=== PATIENT | female | born 1995 | race Caucasian/White ===

== ENCOUNTER → 2020-04-12 | Outpatient (CLI) | payer BC, OTHER | END | disposition home or self-care (01) | LOC: LABWHC1 10:56 | PROVIDERS: ATTEND Internal Medicine | DX: U07.1 COVID-19 (principal) | CPT/HCPCS: U0003; C9803 ==

== ENCOUNTER → 2020-05-17 | Outpatient (CLI) | payer BC ==
--- NOTE | 2020-05-17 15:31 | US ---
EXAMINATION TYPE: Transabdominal DATE OF EXAM: 05/17/2020 3:10 PM COMPARISON: NONE CLINICAL HISTORY: Z36 CONFIRM DATES. Confirm dates. Report that printed the AUA was not correct for some reason I put correct information in allan. EXAM PERFORMED: Transabdominal (TA) EXAM MEASUREMENTS: GESTATIONAL AGE / DATING Physician Established: Not yet established Dates by LMP: (11 weeks/1 days) EDC: 12/05/2020 Dates by First Scan: No previous this is first scan ( weeks/ days) EDC: Dates by Current Scan for: (11 weeks/4 days) EDC: 12/02/2020 MATERNAL ANATOMY Uterus: 10.3 x 6.7 x 7.0 cm Right Ovary: Obscured by bowel gas. Left Ovary: Obscured by bowel gas. Post CDS / Adnexa: wnl Presence of free fluid: no Presence of corpus luteal cyst: no Presence of subchorionic bleed: no GESTATION / SURVEY CRL: .46 cm (11 weeks/4 days) Yolk Sac (normal less than 6mm): 4 mm Heart Rate: 161 bpm Rhythm: Normal IUP: Viable IUP Beta HcG (if available): Not available at this time IMPRESSION: Viable 11 weeks 4 days with a heart rate of 161 bpm.
== END | disposition home or self-care (01) ==
LOC: RADUSWWP 14:49
PROVIDERS: ATTEND Obstetrics & Gynecology
DX: Z36.87 Encounter for antenatal screening for uncertain dates (principal); Z3A.11 11 weeks gestation of pregnancy
CPT/HCPCS: 76801

== ENCOUNTER → 2020-07-31 | Outpatient (CLI) | payer BC | END | disposition home or self-care (01) | LOC: LABWHC1 14:22 | PROVIDERS: ATTEND Internal Medicine | DX: R05 Cough (principal); Z20.828 Contact with and (suspected) exposure to other viral communicable diseases | CPT/HCPCS: U0003; C9803 ==

== ENCOUNTER 2020-08-05 16:34 | Emergency (ER) | payer BC ==
[2020-08-05 16:58] VITALS: RESP 18
--- NOTE | 2020-08-05 18:09 | ED ---
General Adult HPI - General Chief complaint: Upper Respiratory Infection Stated complaint: SOB/cough COVID+ Time Seen by Provider: 08/05/20 17:57 Source: patient, RN notes reviewed Mode of arrival: ambulatory Limitations: no limitations - History of Present Illness Initial comments: this a 25-year-old female presents emergency department with chief complaint of shortness breath, positive Covid. Patient states she started having symptoms 10 days ago. Patient states that she's noticed some shortness of breath. Patient states she followed up today she was positive. Patient denies any nausea vomiting diarrhea constipation. Patient is 22 weeks . Patient states her [employer]CH[employer]ICIAN is Dr. Bettencourt she is A0 currently of medications with the pre gnancy. Patient has no significant lung disease. - Related Data Previous Rx's Medication Instructions Recorded Albuterol Sulfate [Proair Hfa] 1 - 2 puff INHALATION Q4HR PRN #1 08/05/20 inhaler Allergies Allergy/AdvReac Type Severity Reaction Status Date / Time No Known Allergies Allergy Verified 08/05/20 16:58 Review of Systems ROS Statement: Those systems with pertinent positive or pertinent negative responses have been documented in the HPI. ROS Other: All systems not noted in ROS Statement are negative. Past Medical History Past Medical History: No Reported History History of Any Multi-Drug Resistant Organisms: None Reported Past Surgical History: No Surgical Hx Reported Past Psychological History: No Psychological Hx Reported Smoking Status: Never smoker Past Alcohol Use History: None Reported Past Drug Use History: None Reported General Exam Limitations: no limitations General appearance: alert, in no apparent distress Head exam: Present: atraumatic, normocephalic, normal inspection Eye exam: Present: normal appearance, PERRL, EOMI. Absent: scleral icterus, conjunctival injection, periorbital swelling ENT exam: Present: normal exam, normal oropharynx, mucous membranes moist Neck exam: Present: normal inspection, full ROM. Absent: tenderness, meningismus, lymphadenopathy Respiratory exam: Present: normal lung sounds bilaterally. Absent: respiratory distress, wheezes, rales, rhonchi, stridor Cardiovascular Exam: Present: regular rate, normal rhythm, normal heart sounds. Absent: systolic murmur, diastolic murmur, rubs, gallop, clicks GI/Abdominal exam: Present: soft, normal bowel sounds. Absent: distended, tenderness, guarding, rebound, rigid Course Vital Signs 08/05/20 16:56 Temperature 98.0 F Pulse Rate 109 H Respiratory 18 Rate Blood Pressure 149/75 O2 Sat by Pulse 97 Oximetry Medical Decision Making - Medical Decision Making chest x-rays unremarkable. Respiratory rate within normal limits and no signs of distress. Patient is covid positive though very mild symptomspatient we discharged in stable condition return parameters discussed. Disposition Clinical Impression: COVID-19 Disposition: HOME SELF-CARE Condition: Stable Instructions (If sedation given, give patient instructions): Upper Respiratory Infection (ED) Additional Instructions: Please return to the Emergency Department if symptoms worsen or any other concerns. Prescriptions: Albuterol Sulfate [Proair Hfa] 1 - 2 puff INHALATION Q4HR PRN #1 inhaler PRN Reason: difficulty in breathing Is patient prescribed a controlled substance at d/c from ED?: No Referrals: Lesia Perdue MD [Primary Care Provider] - 1-2 days Time of Disposition: 18:36
--- NOTE | 2020-08-05 18:41 | XR ---
EXAMINATION TYPE: XR chest 2V DATE OF EXAM: 08/05/2020 COMPARISON: NONE HISTORY: Cough TECHNIQUE: FINDINGS: Heart and mediastinum are normal. Lungs are clear. Diaphragm is normal. Bony thorax appears normal. Pulmonary vascularity is normal. IMPRESSION: Normal chest.
[2020-08-05 19:09] VITALS: BP 109/61; PULSE 89; TEMP 98.6
== END 2020-08-05 19:08 | disposition home or self-care (01) ==
LOC: EC 16:34
DX: O98.511 Other viral diseases complicating pregnancy, first trimester (principal); U07.1 COVID-19; Z3A.22 22 weeks gestation of pregnancy
CPT/HCPCS: 71046; 99284

== ENCOUNTER 2020-10-15 16:40 | Outpatient (CLI) | payer BC ==
[2020-10-15 17:14] VITALS: RESP 16; TEMP 96.5
[2020-10-15 17:15] LABS: Appearance,Urine Cloudy (Clear); Bacteria,Urine Occasional /hpf; Bilirubin,Urine Negative (Negative); Blood,Urine Negative (Negative); Color,Urine Light Yellow; Glucose,Urine (UA) Negative (Negative); Ketones,Urine Negative (Negative); Leukocyte Esterase,Urine Negative (Negative); Nitrite,Urine Negative (Negative); Protein,Urine Negative (Negative); RBC,Urine <1 /hpf (0-5); Specific Gravity,Urine 1.006 (1.001-1.035); Squamous Epithelial Cell,Urine 6 /hpf (0-4); Urobilinogen,Urine <2.0 mg/dL (<2.0); WBC,Urine 1 /hpf (0-5)
[2020-10-15 17:24] LABS: Protein/Creatinine Ratio,Urine 0.667
[2020-10-15 18:19] LABS: Basophils # (A) 0.1 k/uL (0-0.2); Basophils % (A) 1 %; Eosinophils # (A) 0.1 k/uL (0-0.7); Eosinophils % (A) 1 %; HCT 38.7 % (34.0-46.0); HGB 13.2 gm/dL (11.4-16.0); Lymphocytes # (A) 2.1 k/uL (1.0-4.8); Lymphocytes % (A) 19 %; MCH 29.8 pg (25.0-35.0); MCHC 34.2 g/dL (31.0-37.0); MCV 87.1 fL (80.0-100.0); Mean Platelet Volume 8.6; Monocytes # (A) 0.7 k/uL (0-1.0); Monocytes % (A) 6 %; Neutrophils # (A) 8.1 k/uL (1.3-7.7); Neutrophils % (A) 73 %; Platelet Count 238 k/uL (150-450); RBC 4.44 m/uL (3.80-5.40); RDW 12.9 % (11.5-15.5); WBC 11.2 k/uL (3.8-10.6)
[2020-10-15 18:27] LABS: ALT 680 U/L (4-34); AST 296 U/L (14-36); African American GFR (CKD) >90 (>60 ml/min/1.73 sqM); Blood Urea Nitrogen 8 mg/dL (7-17); LDH 556 U/L (313-618); Non-African American GFR(CKD) >90 (>60 ml/min/1.73 sqM); Uric Acid 3.8 mg/dL (3.7-7.4)
[2020-10-15 18:32] LABS: INR 0.8 (<1.2); Partial Thromboplastin Time 22.8 sec (22.0-30.0); Prothrombin Time 9.3 sec (9.0-12.0)
[2020-10-15] MEDS ORDERED: BETAMET ACET-BETAMETH SOD PHOS 6 MG/ML MDV IM SCH (18:45)
[2020-10-15] MEDS ORDERED: CALCIUM GLUCONATE 1 GM/10 ML VIAL IV PRN (19:04)
[2020-10-15] MEDS ORDERED: MAGNESIUM SULFATE-WATER PMX 4 GM in WATER FOR INJECTION 1 100ML.BAG IVPB ONE (19:04)
[2020-10-15] MEDS ORDERED: MAGNESIUM SULFATE-WATER PMX 20 GM in WATER FOR INJECTION 1 500ML.BAG IV SCH (19:15)
[2020-10-15] MEDS ORDERED: LACTATED RINGERS 1,000 ML IV SCH (19:15)
--- NOTE | 2020-10-15 19:32 | P.HPOB ---
History of Present Illness H&P Date: 10/15/20 Chief Complaint: Preeclampsia 25-year-old presents at 32 weeks and 5 days with elevated blood pressure in my office. The blood pressure was 150/101 149/104. She denies headache, did have a little bit of blurry vision yesterday, no nausea or RUQ pain. I consulted with the MFM at [facility], Dr Shipley. Pt was diagnosed with preeclampsia. I will give her betamethasone and put her on magnesium sulfate to transfer her to [facility] where there is a NICU that can care for the baby at this gestation. Patient is not roz and the f etal heart tones are 135 with category 1 tracing. Review of Systems All systems: negative Constitutional: Denies chills, Denies fever Eyes: denies blurred vision, denies pain Ears, nose, mouth and throat: Denies headache, Denies sore throat Cardiovascular: Denies chest pain, Denies shortness of breath Respiratory: Denies cough Gastrointestinal: Denies abdominal pain, Denies diarrhea, Denies nausea, Denies vomiting Genitourinary: Denies dysuria, Denies hematuria Musculoskeletal: Denies myalgias Integumentary: Denies pruritus, Denies rash Neurological: Denies numbness, Denies weakness Psychiatric: Denies anxiety, Denies depression Endocrine: Denies fatigue, Denies weight change Past Medical History Additional Past Medical History / Comment(s): ADHD and endometriosis. Obstetric history: This is her first . Her blood type is O+, antibodies negative, rubella nonimmune, hepatitis B negative. Her creatinine at the beginning the was 0.57. She had an abnormal 1 hour but a normal three-hour glucose tolerance test. She did test positive for Covid- 19 in early the part of July. She quarantined for the appropriate time and recovered. History of Any Multi-Drug Resistant Organisms: None Reported Additional Past Surgical History / Comment(s): Laparoscopy Smoking Status: Never smoker Medications and Allergies Home Medications Medication Instructions Recorded Confirmed Type Albuterol Sulfate [Proair Hfa] 1 - 2 puff INHALATION Q4HR PRN #1 08/05/20 Rx inhaler Allergies Allergy/AdvReac Type Severity Reaction Status Date / Time No Known Allergies Allergy Verified 10/15/20 16:45 Exam Osteopathic Statement: *. No significant issues noted on an osteopathic structural exam other than those noted in the History and Physical/Consult. Vital Signs Temp Pulse Resp BP Pulse Ox 10/15/20 17:11 96.5 F L 113 H 16 132/81 98 Intake and Output 10/15/20 10/15/20 10/15/20 06:59 14:59 22:59 Other: Weight 91.626 kg Heart: Regular rate and rhythm Lungs: Clear to auscultation bilaterally Abdomen: Soft, nontender Extremities: Negative Homans sign, 3 / 4 DTR Results Result Diagrams: 10/15/20 17:22 10/15/20 17:22 Abnormal Lab Results - Last 24 Hours (Table) 10/15/20 10/15/20 10/15/20 Range/Units 16:35 17:22 17:22 WBC 11.2 H (3.8-10.6) k/uL Neutrophils # 8.1 H (1.3-7.7) k/uL Fibrinogen 654 H (200-500) mg/dL Creatinine (0.52-1.04) mg/dL AST (14-36) U/L ALT (4-34) U/L Urine Appearance Cloudy H (Clear) Ur Squamous Epith Cells 6 H (0-4) /hpf Urine Bacteria Occasional H (None) /hpf 10/15/20 Range/Units 17:22 WBC (3.8-10.6) k/uL Neutrophils # (1.3-7.7) k/uL Fibrinogen (200-500) mg/dL Creatinine 0.48 L (0.52-1.04) mg/dL AST 296 H (14-36) U/L ALT 680 H (4-34) U/L Urine Appearance (Clear) Ur Squamous Epith Cells (0-4) /hpf Urine Bacteria (None) /hpf Assessment and Plan (1) Preeclampsia Current Visit: Yes Status: Acute Code(s): O14.90 - UNSPECIFIED PRE- ECLAMPSIA, UNSPECIFIED TRIMESTER SNOMED Code(s): 838411813 (2) 32 weeks gestation of Current Visit: Yes Status: Acute Code(s): Z3A.32 - 32 WEEKS GESTATION OF SNOMED Code(s): 7989427 Plan: 1. Magnesium sulfate 4 g bolus and then 2 g an hour. 2. Betamethasone 3. Transfer to [facility] via EMS.
[2020-10-15 22:11] VITALS: BP 117/66; PULSE 118
== END 2020-10-15 20:05 | disposition other institution (70) ==
LOC: FBPOP 16:40
PROVIDERS: ATTEND Obstetrics & Gynecology
DX: O13.9 Gestational [pregnancy-induced] hypertension without significant proteinuria, unspecified trimester (principal); O14.90 Unspecified pre-eclampsia, unspecified trimester; Z3A.32 32 weeks gestation of pregnancy
CPT/HCPCS: 59025; 99215; 96361; 96365; 96372; 82239; 82570; 84156; 82565; 83615; 83735; 84450; 84460; 84520; 84550; 85025; 85384; 85610; 85730; 81001; 87086; J3475 ×2; J0702

== ENCOUNTER → 2021-09-03 | Outpatient (CLI) | payer OTHER | END | disposition home or self-care (01) | LOC: LABWHC1 12:10 | PROVIDERS: ATTEND Internal Medicine | DX: Z20.822 Contact with and (suspected) exposure to COVID-19 (principal) | CPT/HCPCS: U0003; C9803 ==

== ENCOUNTER 2022-01-19 09:00 | Inpatient (IN) | payer OTHER ==
[2022-01-19] MEDS ORDERED: CARBOPROST TROMETHAMINE 250 MCG/ML 1 ML AMP IM PRN (13:31)
[2022-01-19] MEDS ORDERED: TERBUTALINE 1 MG/ML VIAL SQ PRN (13:31)
[2022-01-19] MEDS ORDERED: LIDOCAINE 1% (PF) 10 MG/ML (30 ML SDV) SQ PRN (13:31)
[2022-01-19] MEDS ORDERED: OXYTOCIN 10 UNIT/ML 1 ML VIAL IM PRN (13:31)
[2022-01-19] MEDS ORDERED: METHYLERGONOVINE 0.2 MG/ML 1 ML AMP IM PRN (13:31)
[2022-01-19] MEDS ORDERED: LACTATED RINGERS 1,000 ML IV SCH (13:45)
[2022-01-19] MEDS ORDERED: ROPIVACAINE 100 MG, fentaNYL (PF). 200 MCG in SODIUM CHLORIDE 0.9% 76 ML EPIDURAL ONE (13:46)
[2022-01-19 14:32] LABS: Basophils # (A) 0.1 k/uL (0-0.2); Basophils % (A) 1 %; Eosinophils # (A) 0.3 k/uL (0-0.7); Eosinophils % (A) 2 %; HCT 40.3 % (34.0-46.0); HGB 13.4 gm/dL (11.4-16.0); Lymphocytes % (A) 18 %; MCHC 33.2 g/dL (31.0-37.0); MCV 87.4 fL (80.0-100.0); Mean Platelet Volume 9.1; Monocytes # (A) 0.5 k/uL (0-1.0); Monocytes % (A) 4 %; Neutrophils # (A) 7.9 k/uL (1.3-7.7); Neutrophils % (A) 73 %; Platelet Count 245 k/uL (150-450); RBC 4.61 m/uL (3.80-5.40); RDW 12.9 % (11.5-15.5)
[2022-01-19] MEDS ORDERED: SIMETHICONE 80 MG CHEWABLE PO PRN (16:25)
[2022-01-19] MEDS ORDERED: diphenhydrAMINE 25 MG CAP PO PRN (16:25)
[2022-01-19] MEDS ORDERED: diphenhydrAMINE 50 MG/ML 1 ML VIAL IVP PRN ×2 (16:25)
[2022-01-19] MEDS ORDERED: LANOLIN CREAM 5 GM TUBE TOPICAL PRN (16:25)
[2022-01-19] MEDS ORDERED: ZOLPIDEM 5 MG TAB PO PRN (16:25)
[2022-01-19] MEDS ORDERED: ACETAMINOPHEN TAB 325 MG TAB PO PRN (16:25)
[2022-01-19] MEDS ORDERED: HYDROCORTISONE 2.5% RECTAL CREAM 30 GM TUBE RECTAL PRN (16:25)
[2022-01-19] MEDS ORDERED: BENZOCAINE/MENTHOL SPRAY 1 GM/SPRAY AEROSOL TOPICAL PRN (16:25)
[2022-01-19] MEDS ORDERED: diphenhydrAMINE 50 MG CAP PO PRN (16:25)
[2022-01-19] MEDS: IBUPROFEN 600 MG TAB PO PRN (16:53)
[2022-01-19] MEDS: SENNOSIDES-DOCUSATE SODIUM 1 EACH TAB PO SCH (20:16)
[2022-01-20] MEDS: IBUPROFEN 600 MG TAB PO PRN ×2 (05:28→13:00)
[2022-01-20 07:05] LABS: Basophils # (A) 0.1 k/uL (0-0.2); Basophils % (A) 1 %; Eosinophils # (A) 0.4 k/uL (0-0.7); Eosinophils % (A) 3 %; HCT 37.4 % (34.0-46.0); HGB 12.3 gm/dL (11.4-16.0); Lymphocytes # (A) 2.6 k/uL (1.0-4.8); Lymphocytes % (A) 19 %; MCH 29.2 pg (25.0-35.0); MCHC 32.9 g/dL (31.0-37.0); MCV 88.7 fL (80.0-100.0); Mean Platelet Volume 9.4; Monocytes # (A) 0.7 k/uL (0-1.0); Monocytes % (A) 5 %; Neutrophils # (A) 9.3 k/uL (1.3-7.7); Neutrophils % (A) 70 %; Platelet Count 202 k/uL (150-450); RBC 4.22 m/uL (3.80-5.40); RDW 12.9 % (11.5-15.5); WBC 13.2 k/uL (3.8-10.6)
--- NOTE | 2022-01-20 07:33 | P.HPOB ---
History of Present Illness H&P Date: 01/19/22 Chief Complaint: cholestasis of 26 her old presents at 37 weeks and 6 days for induction of labor due to cholestasis of . She started having itching last week and had liver enzymes and by last was tested. All levels were elevated. Her cervix is 4cm dilated, 80% effaced, -2 station. She is roz every 2-5 minutes. heart tones 135 with moderate variability and reactive. Review of Systems All systems: negative Constitutional: Denies chills, Denies fever Eyes: denies blurred vision, denies pain Ears, nose, mouth and throat: Denies headache, Denies sore throat Cardiovascular: Denies chest pain, Denies shortness of breath Respiratory: Denies cough Gastrointestinal: Denies abdominal pain, Denies diarrhea, Denies nausea, Denies vomiting Genitourinary: Denies dysuria, Denies hematuria Musculoskeletal: Denies myalgias Integumentary: Denies pruritus, Denies rash Neurological: Denies numbness, Denies weakness Psychiatric: Denies anxiety, Denies depression Endocrine: Denies fatigue, Denies weight change Past Medical History Past Medical History: No Reported History Additional Past Medical History / Comment(s): ADHD and endometriosis. Obstetric history: First she was delivered at 33 weeks for preeclampsia. This is her second . Her blood type is O+, antibodies negative, rubella immune, hepatitis B negative. Currently has cholestasis of History of Any Multi-Drug Resistant Organisms: None Reported Past Surgical History: No Surgical Hx Reported Additional Past Surgical History / Comment(s): Laparoscopy Smoking Status: Never smoker Medications and Allergies Home Medications Medication Instructions Recorded Confirmed Type Aspirin [Children's Aspirin] 81 mg PO DAILY 01/19/22 01/19/22 History 78/Iron/Folate 1/Dha 1 each PO DAILY 01/19/22 01/19/22 History [Prenate Dha Softgel] Allergies Allergy/AdvReac Type Severity Reaction Status Date / Time No Known Allergies Allergy Verified 01/19/22 13:39 Exam Osteopathic Statement: *. No significant issues noted on an osteopathic structural exam other than those noted in the History and Physical/Consult. Vital Signs Temp Pulse Resp BP Pulse Ox 01/20/22 04:00 98.0 F 97 16 123/77 97 01/20/22 00:00 97.7 F 89 16 125/75 96 01/19/22 20:00 98.0 F 89 17 125/78 96 01/19/22 18:00 96.7 F L 92 16 129/82 01/19/22 17:30 90 16 116/74 01/19/22 17:00 86 16 117/81 01/19/22 16:45 84 16 116/76 01/19/22 16:30 85 16 126/76 01/19/22 16:15 83 16 128/75 01/19/22 16:00 98.2 F 87 16 130/79 Intake and Output 01/19/22 01/20/22 01/20/22 22:59 06:59 14:59 Output Total 175 Balance -175 Output: Output, Quantitative 175 Blood Loss Other: # Voids 1 2 Heart: Regular rate and rhythm Lungs: Clear to auscultation bilaterally Abdomen: Soft, nontender Extremities: Negative Homans sign Results Result Diagrams: 01/20/22 06:40 Abnormal Lab Results - Last 24 Hours (Table) 01/19/22 01/20/22 Range/Units 11:00 06:40 WBC 11.0 H 13.2 H (3.8-10.6) k/uL Neutrophils # 7.9 H 9.3 H (1.3-7.7) k/uL Assessment and Plan (1) Cholestasis during Current Visit: Yes Status: Acute Code(s): O26.619 - LIVER AND BILIARY TRACT DISORD IN , UNSP TRIMESTER; K83.1 - OBSTRUCTION OF BILE DUCT SNOMED Code(s): 103705963 (2) 37 weeks gestation of Current Visit: Yes Status: Acute Code(s): Z3A.37 - 37 WEEKS GESTATION OF SNOMED Code(s): 84604125 (3) Encounter for induction of labor Current Visit: Yes Status: Acute Code(s): Z34.90 - ENCNTR FOR SUPRVSN OF NORMAL , UNSP, UNSP TRIMESTER SNOMED Code(s): 083125751 Plan: 1. Induction of labor with amniotomy and Pitocin 2. Anticipate normal vaginal delivery
--- NOTE | 2022-01-20 07:35 | P.PROBDLV ---
Vaginal Delivery Note - . Vaginal Delivery Note: 26 her old presents at 37 weeks and 6 days for induction of labor due to cholestasis of . Her cervix is 4cm dilated, 80% effaced, -2 station. She is roz every 2-5 minutes. heart tones 135 with moderate variability and reactive. Pitocin augmentation was started. Amniotomy performed at 12:08 PM and clear fluid noted. When she was uncomfortable she did get an epidural. Her cervix was completely dilated at 1441. She pushed, delivered a viable male over intact perineum under epidural anesthesia at 1535. Head delivered OA, anterior shoulder delivered gentle downward guidance followed by posterior shoulder and rest of body. Nose and mouth bulb suctioned, cord clamped and cut, placed mother's abdomen. Apgars 9, 9, weight 7 pounds 12.7 ounces. Placenta delivered spontaneously, intact with three-vessel cord at 1537. Vagina, cervix, perineum inspected. First-degree midline laceration was repaired with 3-0 Vicryl. Estimated blood loss 150 mL. Mother and baby in stable condition.
--- NOTE | 2022-01-20 07:36 | P.DS ---
Providers Date of admission: 01/19/22 09:00 Expected date of discharge: 01/20/22 Attending physician: Melisa Bettencourt Primary care physician: Stated None - Discharge Diagnosis(es) (1) Cholestasis during Current Visit: Yes Status: Resolved (2) 37 weeks gestation of Current Visit: Yes Status: Resolved (3) Encounter for induction of labor Current Visit: Yes Status: Resolved (4) Normal vaginal delivery Current Visit: Yes Status: Acute Hospital Course: Patient presented for induction of labor at 37 weeks and 6 days due to cholest asis of . She underwent an induction of labor and a normal vaginal delivery. course was uncomplicated. She denies nausea, vomiting, chest pain, shortness of breath or any calf pain. Patient will be discharged home day #1 in stable condition to follow-up with me in 6 weeks. Plan - Discharge Summary New Discharge Prescriptions: No Action Aspirin [Children's Aspirin] 81 mg PO DAILY 78/Iron/Folate 1/Dha [Prenate Dha Softgel] 1 each PO DAILY Discharge Medication List Aspirin [Children's Aspirin] 81 mg PO DAILY 01/19/22 [History] 78/Iron/Folate 1/Dha [Prenate Dha Softgel] 1 each PO DAILY 01/19/22 [History]
[2022-01-20] MEDS: SENNOSIDES-DOCUSATE SODIUM 1 EACH TAB PO SCH (08:51)
[2022-01-20 15:43] VITALS: BP 113/75; PULSE 66; RESP 16; TEMP 97.3
== END 2022-01-20 17:50 | disposition home or self-care (01) | DRG 805 ==
LOC: 4FBP 09:00
PROVIDERS: ADMIT Obstetrics & Gynecology; ATTEND Obstetrics & Gynecology
PROC: 10E0XZZ Delivery of Products of Conception, External Approach (ICD-10-PCS; principal; 2022-01-19)
PROC: 0HQ9XZZ Repair Perineum Skin, External Approach (ICD-10-PCS; 2022-01-19)
DX: O26.62 Liver and biliary tract disorders in childbirth (principal); K83.1 Obstruction of bile duct; Z37.0 Single live birth; O70.0 First degree perineal laceration during delivery; Z3A.37 37 weeks gestation of pregnancy; Z79.82 Long term (current) use of aspirin
CPT/HCPCS: 85025; 86850; 86900; 86901

== ENCOUNTER → 2022-06-03 | Outpatient (CLI) | payer BC ==
--- NOTE | 2022-06-09 13:02 | US ---
EXAMINATION TYPE: US abdomen complete DATE OF EXAM: 06/03/2022 COMPARISON: NONE CLINICAL HISTORY: R10.9 ABDOMINAL PAIN. Generalized pain. TECHNIQUE: Multiple sonographic images of the abdomen are obtained. FINDINGS: EXAM MEASUREMENTS: Liver Length: 16.3 cm Gallbladder Wall: 0.2 cm CBD: 0.2 cm Spleen: 12.3 cm Right Kidney: 10.1 x 4.4 x 4.1 cm Left Kidney: 11.9 x 4.9 x 5.2 cm Pancreas: wnl Liver: wnl Gallbladder: wnl Evidence for sonographic Cyr's sign: neg CBD: wnl Spleen: wnl Right Kidney: Medial anechoic lesion at hilum = 0.9 x 0.7 cm Left Kidney: wnl Upper IVC: wnl Abd Aorta: No AAA visualized The liver is homogenous. The intrahepatic portion of the IVC and proximal abdominal aorta are within normal limits. There is no evidence of cholelithiasis. Common bile duct is unremarkable. The visu alized portions of the pancreas are homogenous. The spleen is unremarkable. IMPRESSION: Cyst right kidney. Otherwise unremarkable study.
== END | disposition home or self-care (01) ==
LOC: RADUSWWP 06:52
PROVIDERS: ATTEND Internal Medicine
DX: R10.9 Unspecified abdominal pain (principal)
CPT/HCPCS: 76700